=== PATIENT | female | born 1960 | race Caucasian/White ===

== ENCOUNTER 2024-03-20 11:04 | Day surgery (SDC) | payer BC ==
[~2024-03-20] VITALS: Ht 175.3 cm; Wt 87.0 kg
[~2024-03-20 11:04] MED LIST: Balanced Salt Epinephrine Irrigation Solution 500 mL IR SCH; CALTRATE 600 P1 EACH PO; CELEXA40 M1 PO; DHEA PO; Estrace Vagin42.5 GM VAG; GABA300 PO; LEVSOD75 PO; Lidocaine HCl/Pf 1% 5 ML VIAL XX SCH; Moxifloxacin HCL 0.5 MG/0.1 ML 0.4MLSYR RIGHTEYE SCH; PHENYLEPHRINE\\TROPICAMIDE\\TETRACAINE OPHTHALMIC DILATING SOLN RIGHTEYE PRN; PROG100 PO; Povidone-Iodine 450 DROP/30 ML Solution ONE; Povidone-Iodine 450 DROP/30 ML Solution RIGHTEYE SCH; Tetracaine HCl/Pf 0.5% Opth Soln 4 ml ONE; Triamcinolone Inj Susp 40 MG / ML 1ML Vial INJ SCH; Triamcinolone Inj Susp 40 MG / ML 1ML Vial ONE
[2024-03-20] MEDS ORDERED: Diazepam 2 MG Tab ONE (11:10)
[2024-03-20] MEDS ORDERED: Diazepam 5 MG Tab ONE (11:11)
[2024-03-20] MEDS ORDERED: BUPROPION XL150 M1 (11:27)
[2024-03-20] MEDS ORDERED: Midazolam HCl 1MG / ML 2ML Vial ONE (11:57)
[2024-03-20] MEDS ORDERED: FentaNYL Citrate 50 MCG/ML 2 ML Injection ONE (11:57)
[2024-03-20 12:21] VITALS: BP 122/87
== END 2024-03-20 12:36 | disposition home or self-care (01) ==
LOC: ORSCSDS 11:04
PROVIDERS: Ophthalmology
PROC: 08RJ3JZ Replacement of Right Lens with Synthetic Substitute, Percutaneous Approach (ICD-10-PCS; principal; 2024-03-20 12:30)
DX: H25.811 Combined forms of age-related cataract, right eye (principal); Z79.899 Other long term (current) drug therapy
CPT/HCPCS: A9270; J2250; J3010; J3301; V2632

== ENCOUNTER 2024-04-24 08:02 | Day surgery (SDC) | payer BC ==
[~2024-04-24] VITALS: Ht 172.7 cm; Wt 83.8 kg
[~2024-04-24 08:02] MED LIST changes: +BUPROPION XL150 M1; -Balanced Salt Epinephrine Irrigation Solution 500 mL IR SCH; +Benzocaine Oral Spray 0.5ML UD ONE; +Lactated Ringer's 1,000 ML IV SCH; -Lidocaine HCl/Pf 1% 5 ML VIAL XX SCH; -Moxifloxacin HCL 0.5 MG/0.1 ML 0.4MLSYR RIGHTEYE SCH; -PHENYLEPHRINE\\TROPICAMIDE\\TETRACAINE OPHTHALMIC DILATING SOLN RIGHTEYE PRN; -Povidone-Iodine 450 DROP/30 ML Solution ONE; -Povidone-Iodine 450 DROP/30 ML Solution RIGHTEYE SCH; -Tetracaine HCl/Pf 0.5% Opth Soln 4 ml ONE; -Triamcinolone Inj Susp 40 MG / ML 1ML Vial INJ SCH; -Triamcinolone Inj Susp 40 MG / ML 1ML Vial ONE
[2024-04-24 08:25] VITALS: BP 131/78
[2024-04-24] MEDS ORDERED: propofoL 60 ML IV ONE (08:31)
--- NOTE | 2024-04-24 08:31 | NUR ---
History, Chart, Medications and Allergies reviewed before start of procedure. Pre-Op teaching done. Pt verbalizes understanding. Patient states colon prep results clear. Lungs clear T/O to Auscultation. Patient confirms NPO status and agrees with scheduled surgery.
--- NOTE | 2024-04-24 08:45 | NUR ---
04/24/24 0845 Florencia Armijo CONFIRMED AND REVIEWED H&P, MEDCICATIONS, ALLERGIES, MEDICAL HISTORY, RESPIRATORY HISTORY, VITAL SIGNS, 3-LEAD EKG, CONSENTS, AND PHYSICIAN ORDERS. PATIENT CONFIRMS NPO STATUS AND AGREES WITH SCHEDULED PROCEDURE. MONITOR INTACT WITH CONTINUOUS PULSE OXIMETRY, CAPNOGRAPHY, 3-LEAD EKG, INTERMITTENT BP. SUPPLEMENTAL O2 TO BE TITRATED THROUGHOUT PROCEDURE TO MAINTAIN O2 SATURATION ABOVE 90%. PATIENT DETERMINED TO BE ASA APPROPRIATE FOR PROPOFOL SEDATION PRIOR TO START OF PROCEDURE BY DR. GLASS.
[2024-04-24 09:26] VITALS: BP 126/80
--- NOTE | 2024-04-24 09:48 | NUR ---
Discharge instructions reviewed with patient. Patient verbalizes understanding. Copy given to patient to take home. Patient States Post-Procedure ride home has been arranged. Discharged via wheelchair to private car for ride home.
== END 2024-04-24 09:49 | disposition home or self-care (01) ==
LOC: ORSCMMR 08:02 → ORD 08:30 → ORSCMMR 09:49
PROVIDERS: Internal Medicine Gastroenterology
PROC: 0DB48ZX Excision of Esophagogastric Junction, Via Natural or Artificial Opening Endoscopic, Diagnostic (ICD-10-PCS; principal; 2024-04-24 08:30)
PROC: 0DBM8ZX Excision of Descending Colon, Via Natural or Artificial Opening Endoscopic, Diagnostic (ICD-10-PCS; principal; 2024-04-24 08:30)
PROC: 0DBL8ZX Excision of Transverse Colon, Via Natural or Artificial Opening Endoscopic, Diagnostic (ICD-10-PCS; principal; 2024-04-24 08:30)
PROC: 0DBK8ZX Excision of Ascending Colon, Via Natural or Artificial Opening Endoscopic, Diagnostic (ICD-10-PCS; principal; 2024-04-24 08:30)
PROC: 0DB58ZX Excision of Esophagus, Via Natural or Artificial Opening Endoscopic, Diagnostic (ICD-10-PCS; principal; 2024-04-24 08:30)
DX: Z12.11 Encounter for screening for malignant neoplasm of colon (principal); K21.9 Gastro-esophageal reflux disease without esophagitis; D12.2 Benign neoplasm of ascending colon; D12.4 Benign neoplasm of descending colon; K63.5 Polyp of colon; K57.30 Diverticulosis of large intestine without perforation or abscess without bleeding; Z86.0100 Personal history of colon polyps, unspecified; E03.9 Hypothyroidism, unspecified; Z85.820 Personal history of malignant melanoma of skin; F32.A Depression, unspecified; Z79.899 Other long term (current) drug therapy
CPT/HCPCS: 88305; A9270; J2704; J7120